=== PATIENT | male | born 1955 | race Caucasian/White ===

== ENCOUNTER → 2024-02-26 09:41 | Outpatient (REF) | payer MEDICARE, SELFPAY | LOC: RAD 09:41 | PROVIDERS: ATTENDING PHYSICIAN Physician Assistant; REFERRING PHYSICIAN Internal Medicine Cardiovascular Disease | DX: Z00.01 Encounter for general adult medical examination with abnormal findings (principal); Z13.6 Encounter for screening for cardiovascular disorders | CPT/HCPCS: 76770 ==

== ENCOUNTER → 2024-05-15 09:57 | Outpatient (REF) | payer MEDICARE, SELFPAY ==
[2024-05-15 11:07] LABS: % Basophils 0.6 % (0-2); % Eosinophils 1.1 % (0-6); % Immature Granulocytes 0.2 % (0-0.5); % Lymphocytes 23.6 % (20.5-51.1); % Monocytes 11.8 % (1.7-9.3); % Neutrophils 62.7 % (42.2-75.2); Absolute Eosinophils 0.1 10^3/uL (0-0.7); Absolute Lymphocytes 1.1 10^3/uL (1.2-3.4); Absolute Monocytes 0.6 10^3/uL (0.1-0.6); Absolute Neutrophils 2.9 10^3/uL (1.4-6.5); Hematocrit 35.7 % (39.0-52.0); Hemoglobin 11.3 g/dL (13.0-18.0); Mean Corp Hgb Conc. 31.7 g/dL (33.0-37.0); Mean Corpuscular Hgb 23.2 pg (27.0-31.0); Mean Corpuscular Volume 73.3 fL (80.0-94.0); Mean Platelet Volume 8.6 fL (7.4-10.4); Nucleated Red Blood Cells % 0 % (-); Platelet Count 263 10^3/uL (130-400); Red Blood Cell Count 4.87 10^6/uL (4.70-6.10); Red Cell Dist. Width 18.3 % (11.5-14.5); White Blood Cell Count 4.7 10^3/uL (4.8-10.8)
[2024-05-15 11:34] LABS: Iron 43 ug/dl (49-181)
[2024-05-15 11:43] LABS: Percent Saturation 10 % (20-50); Total Iron Binding Capacity 401 ug/dl (261-462)
[2024-05-15 12:17] LABS: Ferritin 5.7 ng/ml (17.9-464.0)
[2024-05-15 12:32] LABS: Vitamin B12 736 pg/ml (239-931)
[2024-05-18 01:31] LABS: H. pylori Breath Test Negative (Negative)
== END ==
LOC: LAB 09:57
PROVIDERS: ATTENDING PHYSICIAN Physician Assistant Medical; FAMILY PHYSICIAN Physician Assistant
DX: D64.9 Anemia, unspecified (principal); R10.84 Generalized abdominal pain
CPT/HCPCS: 36415; 82607; 82728; 83013; 83540; 83550; 85025

== ENCOUNTER → 2025-01-09 09:19 | Outpatient (REF) | payer MEDICARE, SELFPAY | LOC: HWRAD 09:19 | PROVIDERS: ATTENDING PHYSICIAN Physician Assistant | DX: S46.912A Strain of unspecified muscle, fascia and tendon at shoulder and upper arm level, left arm, initial encounter (principal) | CPT/HCPCS: 73030 ==

== ENCOUNTER → 2025-03-06 08:14 | Outpatient (REF) | payer MEDICARE, SELFPAY | LOC: HWRAD 08:14 | PROVIDERS: ATTENDING PHYSICIAN Physician Assistant | DX: R91.1 Solitary pulmonary nodule (principal) | CPT/HCPCS: 71250 ==